=== PATIENT | female | born 1940 | race Caucasian/White ===

== ENCOUNTER 2017-01-02 10:50 | Emergency (ER) | payer MEDICARE ==
[2017-01-02 12:59] VITALS: BP 157/80
--- NOTE | 2017-01-02 13:08 | UC ---
Breast Complaint - HPI Summary HPI Summary: 76 y/o female present to the urgent care c/o of a lump in her LF breast for the past 6 weeks which is becoming painful. Pt reports she has FMHX of breast CA and she had a lumpectomy in 1995 which was a benign mass. She also has PMHX of skin CA and CLL. Her last mammogram was in 01/2016 and it was normal. Pt denies nipple discharge, fever, SOB, chest pain, N/V/D. Pt is concern, she called her PCP but he could'nt give her an appt soon and advised to come to the urgent care. Pt doesn't have more complains. - History of Current Complaint Hx Obtained From: Patient Breast Chief Complaint: Pain, Breast, Left, Palpable Lump - for the past 6 weeks Onset/Duration: Started Weeks Ago, Still Present - it is painful at touch Timing: Intermittent Breast Pain Aggravating Factors: Palpation Breast Pain Alleviating Factors: Nothing Breast Associated Signs/Symptoms: Nodule/Mass Breast Related History: Similar Episode as: - in 1995 with lumpectomy in 1995. FMHX of Breast CA, - Additional Pertinent History Breast History: Other Breast Surgery - Lumpectomy in 1995 - Allergy/Home Medications Allergies/Adverse Reactions: Allergies Allergy/AdvReac Type Severity Reaction Status Date / Time Aspirin Allergy Severe See Comment Verified 01/11/15 11:35 [From Talwin Compound] Pentazocine Allergy Severe See Comment Verified 01/11/15 11:35 [From Talwin Compound] Codeine Allergy Intermediate Vomiting Verified 01/11/15 11:35 Hydrocodone Allergy Intermediate Vomiting Verified 01/11/15 11:35 Ibandronic Acid [From Boniva] Allergy Intermediate Diarrhea Verified 01/11/15 11 :35 Morphine and Related Allergy Intermediate Vomiting Verified 01/11/15 11:35 Omeprazole Allergy Intermediate Itching Verified 01/11/15 11:35 Risedronate [From Actonel] Allergy Intermediate Diarrhea Verified 01/11/15 11:35 Levothyroxine Allergy Mild Rash Verified 01/11/15 11:35 PMH/Surg Hx/FS Hx/Imm Hx Previously Healthy: Yes Endocrine History: Hypothyroidism Cancer History: Other - CLL Dx in [address] Riggins Other Cancer History: CLL Dx in [address] Riggins Other History Of: Negative For: Anticoagulant Therapy - Surgical History Surgical History: Yes Surgery Procedure, Year, and Place: CHOLECYSTECOMY, 1999, [facility] [place]. HEMORRHOID SURGERY AND FISSURE REPAIR, 1978, [facility] [place]. LF breast lumpectomy in 1995 - Family History Known Family History: Positive: None - reviewed & noncontributory - Social History Occupation: Retired Lives: With Family Alcohol Use: None Substance Use Type: None Smoking Status (MU): Never Smoked Tobacco - Immunization History Most Recent Influenza Vaccination: fall 2013 Most Recent Tetanus Shot: unknown- states it's up to date Most Recent Pneumonia Vaccination: 2006 Review of Systems Constitutional: Negative Skin: Negative, Other - LF breast lump painful x 6 weeks Eyes: Negative ENT: Negative Respiratory: Negative Cardiovascular: Negative Gastrointestinal: Negative Genitourinary: Negative Motor: Negative Neurovascular: Negative Musculoskeletal: Negative Neurological: Negative Psychological: Negative All Other Systems Reviewed And Are Negative: Yes Physical Exam Triage Information Reviewed: Yes Appearance: Well-Appearing, No Pain Distress, Well-Nourished, Thin Vital Signs: Initial Vital Signs Temp 98 F 01/02/17 10:54 Pulse 69 01/02/17 10:54 Resp 17 01/02/17 10:54 Pulse Ox 99 01/02/17 10:54 Vital Signs Reviewed: Yes Eye Exam: Normal Eyes: Positive: Conjunctiva Clear - PERRLA, EOMI ENT Exam: Normal ENT: Positive: Normal ENT inspection, Hearing grossly normal, Pharynx normal, TMs normal Dental Exam: Normal Neck exam: Normal Neck: Positive: Supple, Nontender, No Lymphadenopathy Respiratory Exam: Normal Respiratory: Positive: Chest non-tender, Lungs clear, Normal breath sounds Cardiovascular Exam: Normal Cardiovascular: Positive: RRR, No Murmur, Pulses Normal Abdominal Exam: Normal Abdomen Description: Positive: Nontender, No Organomegaly, Soft Bowel Sounds: Positive: Present, Absent Musculoskeletal Exam: Normal Musculoskeletal: Positive: Strength Intact, ROM Intact, No Edema Neurological Exam: Normal Neurological: Positive: Alert Psychological Exam: Normal Skin: Positive: Other - Breast: breast are symmetric and have normal contour. Skin is of normal color and appearance; there are not edema, ulceration, or erythema. Nipples are of normal size and shape; there is no nipple retraction, ulceration or discharge. Palpation of a small rubbery nodule at 7 o'clock with regular borders, movable, tender on palpation. Breast Pain Course/Dx - Course Course Of Treatment: 76 y/o female c/o of left lump, painful X 6 weeks. Hx obtained. PE abnormal finding: Skin: Positive: Other - Breast: breast are symmetric and have normal contour. Skin is of normal color and appearance; there are not edema, ulceration, or erythema. Nipples are of normal size and shape; there is no nipple retraction, ulceration or discharge. Palpation of a small rubbery nodule at 7 o'clock with regular borders, movable, tender on palpation. Pt with PMHX of Lumpectomy in 1995, CLL, Skin CA and FMHX of breast CA. very concern. Unable to perform US at the facilty. Pt reassure that is probably an benign mass. I contact Dr Roldan's her PCP and spoke to Shahnaz nurse and requested a referral for Mammogram for further evaluation and treatment as a priority since Pt is very anxious. Shahnaz requested medical record to be faxed over her office. Pt educated on breast masses. - Differential Diagnoses Differential Diagnosis/HQI/PQRI: Breast Abscess, Breast Mass, Fibrocystic Breast Disease, Mastitis - Diagnoses Provider Diagnoses: Mass of breast, left - Provider Notifications Discussed Care Of Patient With: Harvey Barbosa - DR Barbosa will do the referral for mammogram Instructed by Provider To: Other - will f/u in an outpatient care Discharge - Discharge Plan Condition: Stable Disposition: HOME Prescriptions: Acetaminophen TAB* [Tylenol TAB*] 650 mg PO Q4H PRN #20 tab PRN Reason: Pain Patient Education Materials: Breast Mass (ED) Referrals: Harvey Barbosa MD [Primary Care Provider] - 1 Day (Pt Hx of lumpectomy in 1995 with LF breast mass at 7 o'clock with tenderness on palpation, Pt needs referral for mammogram. Thank you) Additional Instructions: We will call your PCP Dr Barbosa to try to get the mammogram appt for further evaluation and treatment on the Left breast mass. Please take Thylenol OTC q4- 6hrs prn to alleviate pain.
== END 2017-01-02 13:24 | disposition home or self-care (01) ==
LOC: UCEAST 10:50
DX: N63 Unspecified lump in breast (principal); Z85.828 Personal history of other malignant neoplasm of skin; Z85.6 Personal history of leukemia; Z80.3 Family history of malignant neoplasm of breast; E03.9 Hypothyroidism, unspecified
CPT/HCPCS: 99212; G0463

== ENCOUNTER → 2018-12-21 07:21 | Day surgery (SDC) | payer MEDICARE ==
[~2018-12-21 07:21] MED LIST: Acetaminophen TAB* 325 MG PO PRN; Buffered Lidocaine 1% SYRIN* 1 ML/SYRINGE INTRADERM ONE; Bupivacaine 0.25% SDV PF* 10 ML VIAL INJ ONE; Ibuprofen TAB* 600 MG PO PRN; Lactated Ringers 1000 ML Bag* 1,000 ML IV SCH; Lidocain 1% EPI 1:100,000 * 30 ML MDV ONE; Midazolam* 1 MG/ML 2 ML VIAL (2 MG) ONE; Mineral Oil Sterile, TOPICAL* 25 ML BTL ONE; Naloxone* 0.4 MG/ML 1 ML VIAL IV PRN; Ondansetron INJ* 2 MG/ML VIAL IV PRN; Propofol* 10 MG/ML 20 ML BTL ONE; ceFAZolin 2 GM PREMIX in ORs 2 GM/50 ML BAG ONE; fentaNYL* 50 MCG/ML 2 ML VIAL (100 MCG VIAL) IV PRN; fentaNYL* 50 MCG/ML 2 ML VIAL (100 MCG VIAL) ONE; oxyCODONE/Acetamin 5/325 MG* TAB PO PRN
[2018-12-21 12:42] VITALS: BP 122/68
== END | disposition home or self-care (01) ==
LOC: OR 07:21
PROVIDERS: ATTEND Plastic Surgery
DX: C44.311 Basal cell carcinoma of skin of nose (principal); J45.909 Unspecified asthma, uncomplicated; E03.9 Hypothyroidism, unspecified; G89.29 Other chronic pain; M19.90 Unspecified osteoarthritis, unspecified site; K21.9 Gastro-esophageal reflux disease without esophagitis; C91.12 Chronic lymphocytic leukemia of B-cell type in relapse; J44.9 Chronic obstructive pulmonary disease, unspecified; I10 Essential (primary) hypertension
CPT/HCPCS: 88305; 88331; 88332; A9270-GY; J0690; J2250; J2704; J3010; J3490

== ENCOUNTER 2022-05-02 12:15 | Inpatient (IN) ==
[2022-05-02] MEDS ORDERED: Ondansetron ODT 4 mg TAB 4 MG TAB PO ONE (14:28)
[2022-05-02] MEDS ORDERED: HYDROcodone/ACETAMIN 5/325 mg TAB PO ONE ×2 (14:29→23:43)
[2022-05-02] MEDS ORDERED: Gadoteridol (CONTRAST) 279.3 MG/ML 10 ML IV ONE (21:00)
[2022-05-03] MEDS ORDERED: Dexamethasone IV 4 MG/ML VIAL 1 ml VIAL IV SLOW PU ONE (00:10)
[2022-05-03] MEDS ORDERED: Ondansetron 4 mg VIAL 2 MG/ML 2 ml VIAL IV ONE (00:28)
[2022-05-03] MEDS ORDERED: Ondansetron 4 mg VIAL 2 MG/ML 2 ml VIAL ONE (00:29)
[2022-05-03] MEDS: NS 0.9% 1000 ml BAG 1,000 ML IV SCH ×3 (00:32→22:34)
[2022-05-03 00:33] LABS: ABS Lymphocytes 1.1 10^3/ul (1.0-4.8); ABS Monocytes 0.6 10^3/ul (0-0.8); ABS Neutrophils 2.3 10^3/ul (1.5-7.7); Hematocrit 38 % (35-47); Hemoglobin 12.7 g/dL (12.0-16.0); Lymphocyte % 26.8 %; Mean Corpuscular HGB Conc 33 g/dL (31-36); Mean Corpuscular Hemoglobin 33 pg (27-31); Mean Corpuscular Volume 100 fL (80-97); Mean Platelet Volume 7.1 fL (7.4-10.4); Nucleated Red Blood Cells % 0.1; Platelet Count 120 10^3/uL (150-450); Red Cell Distribution Width 14 % (10-15)
[2022-05-03 01:24] LABS: HIV 4th Generation Nonreactive (Nonreactive)
[2022-05-03 01:36] LABS: Hepatitis B Surface Antigen Nonreactive (Nonreactive)
[2022-05-03 01:38] LABS: Albumin 4.1 g/dL (3.2-5.2); Calcium 9.8 mg/dL (8.6-10.3); Potassium 4.3 mmol/L (3.5-5.0); Total Bilirubin 0.6 mg/dL (0.2-1.0)
[2022-05-03 01:41] LABS: Hepatitis A Ab IgM Negative (Negative)
[2022-05-03 01:42] LABS: Hepatitis B Core IgM Nonreactive (Nonreactive)
[2022-05-03 01:44] LABS: Albumin/Globulin Ratio 1.6 (1-3); Globulin 2.6 g/dL (2-4); Total Protein 6.7 g/dL (6.4-8.9); Uric Acid 3.6 mg/dL (2.3-6.6); eGFR CKD-EPI 63.4 (>60)
[2022-05-03 01:54] LABS: Hepatitis C Antibody Negative (Negative)
[2022-05-03] MEDS ORDERED: HYDROmorphone 0.5 MG/0.5 ML SYRINGE IV ONE (03:27)
[2022-05-03] MEDS ORDERED: Senna TAB 8.6 mg TAB PO PRN (04:42)
[2022-05-03] MEDS ORDERED: Polyethylene Glycol 3350 17 GM PACKET PO PRN (04:42)
[2022-05-03] MEDS: Dexamethasone IV 4 MG/ML VIAL 1 ml VIAL IV SLOW PU SCH ×2 (06:11→12:13)
[2022-05-03] MEDS: Enoxaparin 40 MG/0.4 ML SYR SUBCUT SCH (06:11)
[2022-05-03] MEDS: Ondansetron ODT 4 mg TAB 4 MG TAB SL PRN (07:58)
[2022-05-04] MEDS: Enoxaparin 40 MG/0.4 ML SYR SUBCUT SCH (05:22)
[2022-05-04 08:54] LABS: ABS Lymphocytes 1.2 10^3/ul (1.0-4.8); ABS Monocytes 0.7 10^3/ul (0-0.8); ABS Neutrophils 3.4 10^3/ul (1.5-7.7); Eosinophil % 0.2 %; Hematocrit 35 % (35-47); Hemoglobin 11.6 g/dL (12.0-16.0); Mean Corpuscular HGB Conc 34 g/dL (31-36); Mean Corpuscular Hemoglobin 34 pg (27-31); Mean Corpuscular Volume 100 fL (80-97); Platelet Count 118 10^3/uL (150-450); Red Blood Count 3.44 10^6 /uL (3.70-4.87); Red Cell Distribution Width 14 % (10-15); White Blood Count 5.3 10^3/uL (3.5-10.8)
[2022-05-04] MEDS: NS 0.9% 1000 ml BAG 1,000 ML IV SCH (09:46)
[2022-05-04 09:47] LABS: Calcium 9.4 mg/dL (8.6-10.3); Potassium 4.6 mmol/L (3.5-5.0); eGFR CKD-EPI 74.2 (>60)
[2022-05-04] MEDS: Dexamethasone IV 4 MG/ML VIAL 1 ml VIAL IV SLOW PU SCH ×2 (13:20→17:07)
[2022-05-05] MEDS: Dexamethasone IV 4 MG/ML VIAL 1 ml VIAL IV SLOW PU SCH ×4 (00:38→19:48)
[2022-05-05] MEDS: Enoxaparin 40 MG/0.4 ML SYR SUBCUT SCH (05:24)
[2022-05-05 07:05] LABS: ABS Lymphocytes 0.6 10^3/ul (1.0-4.8); ABS Monocytes 0.2 10^3/ul (0-0.8); ABS Neutrophils 3.9 10^3/ul (1.5-7.7); Hematocrit 36 % (35-47); Hemoglobin 12.4 g/dL (12.0-16.0); Lymphocyte % 13.2 %; Mean Corpuscular HGB Conc 35 g/dL (31-36); Mean Corpuscular Hemoglobin 35 pg (27-31); Mean Corpuscular Volume 100 fL (80-97); Mean Platelet Volume 7.3 fL (7.4-10.4); Platelet Count 125 10^3/uL (150-450); Red Blood Count 3.59 10^6 /uL (3.70-4.87); Red Cell Distribution Width 13 % (10-15); White Blood Count 4.7 10^3/uL (3.5-10.8)
[2022-05-06] MEDS: Dexamethasone IV 4 MG/ML VIAL 1 ml VIAL IV SLOW PU SCH ×2 (00:55→10:37)
[2022-05-06] MEDS: Enoxaparin 40 MG/0.4 ML SYR SUBCUT SCH (05:05)
[2022-05-06 05:58] LABS: Hematocrit 36 % (35-47); Hemoglobin 12.2 g/dL (12.0-16.0); Mean Corpuscular HGB Conc 34 g/dL (31-36); Mean Corpuscular Hemoglobin 34 pg (27-31); Mean Corpuscular Volume 100 fL (80-97); Mean Platelet Volume 7.1 fL (7.4-10.4); Platelet Count 124 10^3/uL (150-450); Red Blood Count 3.61 10^6 /uL (3.70-4.87); Red Cell Distribution Width 14 % (10-15); White Blood Count 5.1 10^3/uL (3.5-10.8)
[2022-05-06 06:03] LABS: INR 0.9 (0.89-1.11)
[2022-05-06 06:21] LABS: Calcium 9.6 mg/dL (8.6-10.3); Potassium 4.5 mmol/L (3.5-5.0); eGFR CKD-EPI 82.9 (>60)
[2022-05-06] MEDS ORDERED: PALONOSETRON HCL 0.05 MG/ML (0.25 MG) SYRINGE (0.05 MG/ML) IV ONE ×2 (09:30→09:45)
[2022-05-06] MEDS ORDERED: Famotidine IV 10 MG/ML 2 ml VIAL (20 mg) IV PRN (09:44)
[2022-05-06] MEDS ORDERED: METHOTREXATE INTRATHEC ONE (09:45)
[2022-05-06] MEDS ORDERED: methylPREDNISolone SOD SUCC 125 mg 2 ML VIAL IV PRN (09:45)
[2022-05-06] MEDS ORDERED: NS 0.9% INTRATHEC ONE (09:45)
[2022-05-06] MEDS ORDERED: Meperidine 50 mg/ml SYRINGE 1 ml IV PRN (09:49)
[2022-05-06] MEDS ORDERED: NS 0.9% IVPB ONE ×3 (10:00→16:00)
[2022-05-06] MEDS ORDERED: RITUXIMAB ABBS IVPB ONE ×2 (10:00)
[2022-05-06 12:27] LABS: Body Fluid Source Cerebral Spinal
[2022-05-06 12:39] LABS: CSF Glucose 72 mg/dL (40-70)
[2022-05-06 13:49] LABS: Body Fluid Appearance Clear; Body Fluid Color Colorless; CSF Tube # 4
[2022-05-06 13:52] LABS: Body Fluid WBC 25 /mcL
[2022-05-06 15:17] LABS: Body Fluid Mono 7 %; Body Fluid Total Cells Counted 200
[2022-05-06] MEDS ORDERED: vinCRIStine 2 MG in NS 0.9% 50 ML 50 ML IVPB ONE (15:30)
[2022-05-06] MEDS: DOXORUBICIN IVPB ONE ×2 (15:40→16:18)
[2022-05-06] MEDS ORDERED: CYCLOPHOSPHAMIDE IVPB ONE (16:00)
[2022-05-07] MEDS: Enoxaparin 40 MG/0.4 ML SYR SUBCUT SCH (05:53)
[2022-05-07 06:27] LABS: ABS Lymphocytes 0.6 10^3/ul (1.0-4.8); ABS Monocytes 0.4 10^3/ul (0-0.8); ABS Neutrophils 3.6 10^3/ul (1.5-7.7); Eosinophil % 0.2 %; Hematocrit 39 % (35-47); Hemoglobin 13.1 g/dL (12.0-16.0); Mean Corpuscular HGB Conc 34 g/dL (31-36); Mean Corpuscular Hemoglobin 34 pg (27-31); Mean Corpuscular Volume 100 fL (80-97); Mean Platelet Volume 7.3 fL (7.4-10.4); Platelet Count 102 10^3/uL (150-450); Red Blood Count 3.85 10^6 /uL (3.70-4.87); Red Cell Distribution Width 14 % (10-15); White Blood Count 4.7 10^3/uL (3.5-10.8)
[2022-05-07 06:46] LABS: Calcium 9.1 mg/dL (8.6-10.3); Potassium 3.9 mmol/L (3.5-5.0); eGFR CKD-EPI 74.2 (>60)
[2022-05-07] MEDS: Ondansetron ODT 4 mg TAB 4 MG TAB SL PRN (10:12)
[2022-05-07 12:45] LABS: Uric Acid 2.4 mg/dL (2.3-6.6)
[2022-05-08] MEDS: Enoxaparin 40 MG/0.4 ML SYR SUBCUT SCH (06:06)
[2022-05-08 06:40] LABS: ABS Lymphocytes 0.4 10^3/ul (1.0-4.8); ABS Monocytes 0.2 10^3/ul (0-0.8); ABS Neutrophils 8.9 10^3/ul (1.5-7.7); Eosinophil % 0.1 %; Hematocrit 32 % (35-47); Hemoglobin 11.2 g/dL (12.0-16.0); Lymphocyte % 4.4 %; Mean Corpuscular HGB Conc 35 g/dL (31-36); Mean Corpuscular Hemoglobin 34 pg (27-31); Mean Corpuscular Volume 99 fL (80-97); Red Blood Count 3.26 10^6 /uL (3.70-4.87); Red Cell Distribution Width 14 % (10-15); White Blood Count 9.5 10^3/uL (3.5-10.8)
[2022-05-08 06:56] LABS: Calcium 8.6 mg/dL (8.6-10.3); Phosphorus 2.7 mg/dL (2.5-5.0); Potassium 3.7 mmol/L (3.5-5.0); Uric Acid 2.3 mg/dL (2.3-6.6)
[2022-05-08 08:36] LABS: Mean Platelet Volume 7.2 fL (7.4-10.4); Platelet Count 79 10^3/uL (150-450)
[2022-05-09] MEDS: Enoxaparin 40 MG/0.4 ML SYR SUBCUT SCH (05:58)
[2022-05-09 06:43] LABS: ABS Lymphocytes 0.4 10^3/ul (1.0-4.8); ABS Monocytes 0.1 10^3/ul (0-0.8); ABS Neutrophils 9.4 10^3/ul (1.5-7.7); Eosinophil % 0.1 %; Hematocrit 34 % (35-47); Hemoglobin 11.7 g/dL (12.0-16.0); Lymphocyte % 4.5 %; Mean Corpuscular HGB Conc 35 g/dL (31-36); Mean Corpuscular Hemoglobin 34 pg (27-31); Mean Corpuscular Volume 99 fL (80-97); Mean Platelet Volume 7.9 fL (7.4-10.4); Platelet Count 69 10^3/uL (150-450); Red Blood Count 3.39 10^6 /uL (3.70-4.87); Red Cell Distribution Width 14 % (10-15); White Blood Count 9.9 10^3/uL (3.5-10.8)
[2022-05-09 06:59] LABS: Potassium 3.8 mmol/L (3.5-5.0); Uric Acid 2.1 mg/dL (2.3-6.6); eGFR CKD-EPI 82.9 (>60)
[2022-05-09 10:40] VITALS: BP 113/72
== END 2022-05-09 14:05 | disposition home health service (06) | DRG 841 ==
LOC: ED 12:15 → EDHOLD 12:15 → SUATTDRO 05-03 02:37 → MED 05-03 05:17 → SUATTDRO 05-04 10:00
PROVIDERS: ADMIT Internal Medicine; ATTEND Student in an Organized Health Care Education/Training Program